=== PATIENT | male | born 1980 | race Caucasian/White ===

== ENCOUNTER 2022-02-03 18:15 | Emergency (ER) | payer BC ==
[~2022-02-03] VITALS: Ht 177.8 cm; Wt 99.8 kg
[2022-02-03] MEDS ORDERED: LOSARTAN POTASS50 MG PO (18:31)
[2022-02-03] MEDS ORDERED: FLONASE ALLERG9.9 ML NAS (18:32)
[2022-02-03] MEDS ORDERED: ZYRTEC10 MG PO (18:32)
--- NOTE | 2022-02-05 14:07 | EKG ---
[facility] [address] [facility] [place] [address] Signed Sinus rhythm with occasional premature ventricular complexes Otherwise normal ECG No previous ECGs available Confirmed by JUAN CARLOS BABIN MD ([id number]) on 02/05/2022 2:07:02 PM Electronically Signed By: JUAN CARLOS BABIN MD 02/05/22 1407 PATIENT NAME: CHERISE REYES Electrocardiogram DATE OF : 82 PHYSICIAN: JUAN CARLOS BABIN MD REPORT #: [id number] REPORT IS CONFIDENTIAL AND NOT TO BE RELEASED WITHOUT AUTHORIZATION
== END 2022-02-03 20:40 | disposition home or self-care (01) ==
LOC: ED 18:15
DX: R00.2 Palpitations (principal); I10 Essential (primary) hypertension; J45.909 Unspecified asthma, uncomplicated; Z79.899 Other long term (current) drug therapy
CPT/HCPCS: 36415; 71045; 80053; 83690; 83735; 84443; 84484; 85025; 93005; 93010; 99285-25